=== PATIENT | male | born 2005 | race Asian ===

== ENCOUNTER → 2025-01-20 | Day surgery (SDC) | payer OTHER ==
[~2025-01-20] MED LIST: BINOSTO70 MG PO; LIDOCAINE HCL 2% LOCAL INJ 5 ML SDV VIAL INJ ONE; MIDAZOLAM HCL 2 MG/2 ML VIAL ONE; PROPOFOL IV EMULSION 10 MG/ML 20 ML VIAL ONE; TUMERIC PO; VITAMIN D31250 MCG; [UNRECOGNIZED DRUG - OTHER]
[2025-01-20] MEDS: LACTATED RINGER'S 1,000 ML ONE (08:30)
[2025-01-20 12:06] VITALS: BP 122/78; PULSE 72; RESP 16; O2SAT 98
== END | disposition home or self-care (01) ==
LOC: OR 07:40
PROVIDERS: ATTEND Internal Medicine Gastroenterology
DX: K51.90 Ulcerative colitis, unspecified, without complications (principal); M85.88 Other specified disorders of bone density and structure, other site; R79.89 Other specified abnormal findings of blood chemistry
CPT/HCPCS: 45380; J2003; J2250; J2704; J7121